=== PATIENT | female | born 1960 | race Caucasian/White ===

== ENCOUNTER → 2019-09-06 | Outpatient (CLI) | payer OTHER, SELFPAY ==
--- NOTE | 2019-09-06 08:44 | CT_ITS ---
STUDY: CT CHEST WITHOUT CONTRAST REASON FOR EXAM: Female, 59 years old. Breast cancer radiation therapy planning RADIATION DOSAGE (If Supplied By Facility): CTDIvol = ( 16.38 ) mGy, DLP = ( 515.88 ) mGycm TECHNIQUE: Transaxial imaging was performed without the administration of intravenous contrast material. Individualized dose optimization techniques were used for this CT. COMPARISON: None. FINDINGS: There is diffuse interstitial thickening with centrilobular and some is changes. There is minor subsegmental atelectasis at left base. There is no demonstrated pleural abnormality. Heart is normal size. There is mild coronary artery calcification There is an inhomogeneous appearing lymph node in the anterior superior mediastinal fat to the left of the midline measuring approximately 3.8 x 2.5 cm Normal hilar regions. Normal unenhanced pulmonary arteries. Atherosclerotic changes of the aorta without evidence for aneurysm. Large inhomogeneous mass in the left breast measuring approximately 5.8 x 4.15 cm which appears to be extending into the anterior mediastinal fat with involvement of the multiple anterior left ribs as well as the sternum. There also appears to be involvement of the right rib cage at the costosternal junction. Small hiatal hernia is present. There is no demonstrated abnormality of the visualized upper abdomen. 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
== END | disposition home or self-care (01) ==
LOC: CT 08:40
PROVIDERS: Referring Provider Radiology Radiation Oncology; Visit Provider Radiology Radiation Oncology
DX: C44.501 Unspecified malignant neoplasm of skin of breast (principal)
CPT/HCPCS: 71250

== ENCOUNTER → 2019-09-08 | Outpatient (CLI) | payer OTHER, SELFPAY ==
--- NOTE | 2019-09-08 10:45 | RAD_ITS ---
STUDY: X-RAY - LEFT SHOULDER REASON FOR EXAM: Female, 59 years old. Constant pain TECHNIQUE: 4 view(s) of the shoulder. COMPARISON: None. FINDINGS: Normal glenohumeral articulation. Normal acromioclavicular joint. Normal acromion. Normal humeral head and visualized proximal humerus. The soft tissue structures are unremarkable. Normal visualized pulmonary apex. RAD/Shoulder min 2 Views IMPRESSION: Normal x-ray examination of the shoulder. Electronically Signed: Ron Briscoe MD at 16:58 EDT , Service support ,
--- NOTE | 2019-09-08 10:46 | RAD_ITS ---
STUDY: X-RAY - LEFT SCAPULA REASON FOR EXAM: Female, 59 years old. Pain, history of breast cancer TECHNIQUE: 2 view(s) of the scapula were obtained. COMPARISON: None. FINDINGS: Normal scapula, including the osseous glenoid rim, acromion, scapular neck, spine, coracoid process, and visualized body. Normal glenohumeral articulation. Normal acromioclavicular joint. Normal visualized humeral head. Normal visualized pulmonary apex. RAD/Scapula IMPRESSION: Normal plain film x-ray examination of the scapula. Electronically Signed: Ron Briscoe MD at 11:23 EDT , Service support ,
--- NOTE | 2019-09-08 10:56 | RAD_ITS ---
STUDY: X-RAY - LEFT CLAVICLE REASON FOR EXAM: Female, 59 years old. Persistent pain TECHNIQUE: 2 view(s) of the clavicle. COMPARISON: None. FINDINGS: Normal clavicle. Normal acromioclavicular articulation. Normal visualized sternoclavicular articulation. Normal visualized pulmonary apex. RAD/Clavicle IMPRESSION: Normal x-ray examination of the clavicle. Electronically Signed: Ron Briscoe MD at 16:56 EDT , Service support ,
== END | disposition home or self-care (01) ==
LOC: RAD 10:43
PROVIDERS: Referring Provider Radiology Radiation Oncology; Visit Provider Radiology Radiation Oncology
DX: C50.919 Malignant neoplasm of unspecified site of unspecified female breast (principal); C79.89 Secondary malignant neoplasm of other specified sites
CPT/HCPCS: 73000; 73010; 73030